=== PATIENT | female | born 1980 | race Hispanic/Latino ===

== ENCOUNTER 2023-09-28 10:39 | Emergency (ER) | payer OTHER, SELFPAY ==
[2023-09-28 10:43] VITALS: BP 138/85; PULSE 92; RESP 16; TEMP 36.4; O2SAT 100
[2023-09-28 11:59] LABS: Appearance Urine Clear (Clear); Bilirubin Urine Negative (Negative); Blood Urine Negative (Negative); Color Urine Yellow (Yellow); Glucose Urine UA 3+ mg/dL (Negative); Ketones Urine Negative (Negative); Leukocyte Esterase Ur Negative LEU/UL (Negative); Nitrate Urine Negative (Negative); Protein Urine Negative (Negative); Specific Grav Ur 1.039 (1.001-1.035); Urobilinogen Urine 0.2 mg/dL (<2.0)
[2023-09-28 12:01] LABS: Add Urine Microscopic? NO
--- NOTE | 2023-09-28 12:24 | PC.NURSE ---
Glucose noted in UA. Pt reports she is a diabetic but does not take medications or check BS. BS just checked and is 402
[2023-09-28 12:26] LABS: Glucose Point of Care 402 mg/dl (65-105)
--- NOTE | 2023-09-28 12:45 | ED.FEMALEGU ---
HPI - Female Genitourinary General Chief complaint: Urogenital-Female Stated complaint: vaginal pain x 1 week Time Seen by Provider: 09/28/23 11:25 Source: patient Mode of arrival: ambulatory Limitations: no limitations History of Present Illness HPI Narrative: Patient is a 42-year-old female who presents the ED with report of vaginal burning and irritation. Patient reports she has have pain, burning, itching, inflammation to her vaginal region for the last 2 weeks, but states symptoms have worsened over the last few days. She reports abnormal discharge, denies vaginal bleeding, dysuria, hematuria. Denies abdominal pain, nausea, vomiting, fevers. Denies concern for STDs. Patient does report that she is a diabetic and has been out of her insulin and metformin for the past 9 months. She does not have a primary care doctor appointment until October. Does not check her blood sugars at home. Per records patient does also history of general herpes/hpv. Previously had been on valacyclovir. Is also scheduled to see a new OBGYN soon. Related Data Home Medications Medication Instructions Recorded Confirmed atorvastatin 20 mg tablet 20 mg PO DAILY 09/20/22 etonogestrel 68 mg subdermal 1 implant subdermal ONCE 09/20/22 implant (Nexplanon) insulin detemir U-100 100 unit/mL 18 unit subcut BID 09/20/22 (3 mL) subcutaneous pen (Levemir FlexPen) lisinopril 10 1 tablet PO DAILY 09/20/22 mg-hydrochlorothiazide 12.5 mg tablet metformin 1,000 mg tablet 1,000 mg PO BID 09/20/22 pen needle, diabetic 31 gauge x 09/20/22 3/16 (TRUEplus Pen Needle) valacyclovir 1 gram tablet 1,000 mg PO DAILY 09/20/22 Allergies Allergy/AdvReac Type Severity Reaction Status Date / Time No Known Allergies Allergy Unverified 09/20/22 08:24 Review of Systems Review of Systems: CONSTITUTIONAL: Denies fever, chills, or sweats. GASTROINTESTINAL: Denies abdominal pain, nausea, vomiting, or diarrhea. GENITOURINARY: See HPI MUSCULOSKELETAL: Denies back pain, extremity pain, myalgia. All systems reviewed & are unremarkable except as noted in HPI and below PMFSH Past Medical History Medical History Essential hypertension GBS carrier HSV (herpes simplex virus) infection Hyperlipidemia Obesity (BMI 30-39.9) Premature delivery 30 weeks Type 2 diabetes mellitus Surgical History Surgical History Previous section x3 Family History Family History Mother Diabetes mellitus Hypercholesteremia Hypertension Social History Social History Smoking status: Never smoker Substance use: never Exam Narrative: GENERAL: Well appearing, obese with BMI of 33.3, non-toxic, in no acute distress. HEAD: Normocephalic, atraumatic. RESPIRATORY: Airway patent, respirations nonlabored. Clear to auscultation bilaterally, no rales, rhonchi, wheezing. CARDIOVASCULAR: Regular rate and rhythm ABDOMINAL: Soft, nontender, nondistended. Normoactive BS. PELVIC: External genitalia with mild inflammation, erythema, white thick discharge in labial folds and perineum. Speculum exam revealed further thick white discharge, no bleeding. Normal cervix. No genital lesions, vesicular lesions, evidence of trauma. MUSCULOSKELETAL: Moves all extremities. No gross deformities. SKIN: Warm, dry, normal color. NEURO: A&O X3. Speech clear. PSYCHIATRIC: Appropriate mood and affect. Normal interaction. Course Vital Signs Vital signs: Vital Signs Temperature 97.6 F 09/28/23 10:43 Pulse Rate 92 09/28/23 10:43 Respiratory Rate 16 09/28/23 10:43 Blood Pressure 138/85 09/28/23 10:43 Pulse Oximetry 100 09/28/23 10:43 Oxygen Delivery Room Air 09/28/23 10:43 Temperature 98.0 F 0
[2023-09-28 13:31] LABS: Basophils Percent Auto 0.4 % (0.2-1.2); Eosinophils Percent Auto 0.6 % (0-4.4); Hematocrit 44.4 % (37.0-47.0); Hemoglobin 14.5 g/dL (12.0-15.0); Immature Granulocyte Absolute 0.02 K/mm3 (0.00-0.031); Immature Granulocyte Percent A 0.3 % (0-0.5); Lymphocytes Absolute Auto 2.74 K/mm3 (0.9-3.2); Lymphocytes Percent Auto 40.4 % (18.3-44.2); Mean Corpuscular HGB Conc 32.7 g/dl (32-36); Mean Corpuscular Hemoglobin 26.1 pg (26-34); Mean Platelet Volume 11.7 fl (7.4-10.4); Monocytes Absolute Auto 0.4 K/mm3 (0.1-0.6); Neutrophils Absolute Auto 3.6 K/mm3 (1.3-6.7); Neutrophils Percent Auto 52.3 % (45.5-73.1); Platelet Count Result 245 k/mm3 (150-375); Red Blood Count 5.55 M/mm3 (4.2-5.4); White Blood Count 6.8 K/mm3 (4.5-10.0)
[2023-09-28 13:43] LABS: Alanine Aminotransferase 14 U/L (6-35); Albumin Level 4.6 g/dL (3.5-5.1); Alkaline Phosphatase 112 U/L (38-126); Anion Gap 12 mmol/L (4-12); Aspartate Amino Transferase 20 U/L (14-36); Bilirubin,Total 0.6 mg/dL (0.2-1.3); Blood Urea Nitrogen 12 mg/dL (7-17); Calcium 9.1 mg/dL (8.4-10.2); Carbon Dioxide 27 mmol/L (22-30); Chloride 98 mmol/L (98-107); Estimated CRCL calculation 128 ml/min; Estimated Glomerular Filt Rate > 60; Glucose 367 mg/dL (65-110); Sodium 137 mmol/L (137-145)
[2023-09-28 13:46] LABS: Beta-Hydroxybutyrate/Acetoacetate 0.13 mmol/L (0.02-0.27)
[2023-09-28 14:08] LABS: Hemoglobin A1C 12.6 % (<5.7)
[2023-09-28] MEDS: metFORMIN HCL 500 MG TABLET 1000 MG PO (14:23)
[2023-09-28] MEDS: FLUCONAZOLE 150 MG TABLET PO (14:24)
[2023-09-28 14:40] VITALS: BP 138/84; PULSE 86; RESP 18; TEMP 36.7; O2SAT 100
== END 2023-09-28 14:52 | disposition home or self-care (01) ==
PROVIDERS: Emergency Provider Physician Assistant; PCP Physician Assistant
DX: B37.31 Acute candidiasis of vulva and vagina (principal); E11.65 Type 2 diabetes mellitus with hyperglycemia; I10 Essential (primary) hypertension; E78.5 Hyperlipidemia, unspecified; E66.9 Obesity, unspecified; Z68.33 Body mass index [BMI] 33.0-33.9, adult; Z79.84 Long term (current) use of oral hypoglycemic drugs; Z79.4 Long term (current) use of insulin
CPT/HCPCS: 36415; 80053; 81003; 82010; 82948; 83036; 85025; 99284; A9270